=== PATIENT | female | born 1960 | race Caucasian/White ===

== ENCOUNTER → 2023-05-06 09:44 | Outpatient (CLI) | payer OTHER, SELFPAY ==
--- NOTE | 2023-05-06 09:58 | DI.RAD.S_ITS ---
PROCEDURE: XR THORACIC SPINE 3V INDICATIONS: BACK PAIN TECHNIQUE: 3 views of the thoracic spine were acquired. COMPARISON: None. FINDINGS: Bones: No fractures or dislocations. No suspicious bony lesions. Mild degenerative disease. 12 pairs of ribs are noted, and appear intact where visualized. Soft tissues: No paravertebral stripe thickening. IMPRESSION: 1. No acute bony abnormality. 2. Mild degenerative disc disease. Dictated by: Bebe Em M.D. on 05/06/2023 at 16:23 Approved by: Bebe Em M.D. on 05/06/2023 at 16:24
--- NOTE | 2023-05-06 10:14 | DI.US.S_ITS ---
PROCEDURE: US ABDOMEN LIMITED INDICATIONS: ABDOMINAL WALL LUMPS/TENDERNESS; HX HERNIA REPAIR X 6. 3 new areas of tenderness. TECHNIQUE: Real-time focused scanning was performed of the abdomen, with and without Valsalva, with a high megahertz transducer, with image documentation. COMPARISON: None. FINDINGS: Targeted ultrasound was performed in the left upper quadrant, to the left of the umbilicus, and to the right of the umbilicus. All of these locations where areas of subjective patient tenderness. No masses were identified. No hernias were seen. IMPRESSION: No evidence of abdominal wall defects in the areas of current patient pain and tenderness complaints. No evidence of recurrent hernias. Dictated by: Kal Johnson M.D. on 05/06/2023 at 20:39 Approved by: Kal Johnson M.D. on 05/06/2023 at 20:40
== END ==
PROVIDERS: PCP Family Medicine; Referring Provider Naturopath; Visit Provider Naturopath
DX: K46.9 Unspecified abdominal hernia without obstruction or gangrene (principal); N39.3 Stress incontinence (female) (male); M47.814 Spondylosis without myelopathy or radiculopathy, thoracic region; M54.6 Pain in thoracic spine; Z87.42 Personal history of other diseases of the female genital tract; Z87.828 Personal history of other (healed) physical injury and trauma
CPT/HCPCS: 72072; 76705